=== PATIENT | male | born 1945 | race Caucasian/White ===

== ENCOUNTER 2020-07-15 12:56 | Outpatient (CLI) | payer MEDICARE, BC ==
[2020-07-15] MEDS ORDERED: Magnevist 469MG/ML 20 ML VIAL ONE (13:16)
[2020-07-15 13:49] LABS: Estimated GFR-MDRD - POC Greater than 90
--- NOTE | 2020-07-15 14:48 | MRI ---
MRI Pelvis W WO Con History: Elevated PSA Comparison: None Findings: Multiplanar multisequence pelvic MRI with and without contrast performed prior to and after the intravenous administration of contrast. The exam was performed as a prostate protocol and exam was reviewed on an independent 3-D workstation. Extensive motion artifact throughout the small [id number] T2 images. Peripheral zone: No abnormal focal area of markedly increased signal on high B value DWI or markedly decreased signal on ADC. Calcifications are scattered throughout the peripheral and transitional zone. Transitional zone: No lentiform focus of low T2 signal. Neurovascular bundles: Intact Prostatic capsule: Intact Seminal vesicles: Intact Intrapelvic soft tissues: Numerous phleboliths in the pelvis bilaterally. No free fluid. Bones: No abnormal focus of low T1 signal to suggest osseous metastatic disease. Old coccyx fracture. Impression: 1. PIRADS category 2: Low (clinically significant prostate cancer is unlikely to be present). 2. Intact neurovascular bundles and prostate capsule. 3. No evidence for regional adenopathy or osseous metastatic disease.
== END 2020-07-15 12:57 | disposition home or self-care (01) ==
LOC: TBSIIMAG 12:56
PROVIDERS: ATTEND Urology
DX: R97.20 Elevated prostate specific antigen [PSA] (principal)
CPT/HCPCS: 72197; 82565; A9579